=== PATIENT | male | born 1990 | race Hispanic/Latino ===

== ENCOUNTER 2023-10-29 14:54 | Emergency (ER) | payer BC ==
[~2023-10-29] VITALS: Ht 160 cm; Wt 86.2 kg
[2023-10-29] MEDS: DEXAMETHASONE SOD PHOSPHATE 4 MG/ML 1ML VIAL IVP ONE (16:56)
[2023-10-29] MEDS: DiphenhydrAMINE HCL 50 MG/ML VIAL IV ONE (16:56)
[2023-10-29] MEDS: FAMOTIDINE 20MG VIAL IV ONE (16:56)
[2023-10-29] MEDS ORDERED: DIPH-1242 PO (16:57)
[2023-10-29] MEDS ORDERED: METH4TAB3 PO (16:57)
[2023-10-29] MEDS ORDERED: FAMO-136 PO (16:57)
[2023-10-29 17:17] VITALS: BP 141/88; PULSE 71; RESP 18; O2SAT 100
== END 2023-10-29 17:18 | disposition home or self-care (01) ==
LOC: EDH 14:54
DX: T78.40XA Allergy, unspecified, initial encounter (principal); X58.XXXA Exposure to other specified factors, initial encounter
CPT/HCPCS: 99284; 96374; 96375; J1100; J1200; J3490